=== PATIENT | male | born 1995 | race Caucasian/White ===

== ENCOUNTER 2018-08-18 01:16 | Inpatient (IN) | payer OTHER ==
[~2018-08-18] VITALS: Ht 182.9 cm; Wt 81.6 kg
[2018-08-18 02:00] VITALS: BP 127/78
[2018-08-18] MEDS ORDERED: MAGNESIUM HYDROXIDE 30 ML LIQUID UDC PO PRN (02:15)
[2018-08-18] MEDS ORDERED: HYDROXYZINE PAMOATE 25 MG CAPSULE PO PRN (02:15)
[2018-08-18] MEDS ORDERED: ONDANSETRON 4 MG/2 ML VIAL IM PRN (02:15)
[2018-08-18] MEDS ORDERED: THIAMINE HCL 200 MG/2 ML VIAL IM ONE (02:15)
[2018-08-18] MEDS ORDERED: ACETAMINOPHEN 325 MG TABLET PO PRN (02:15)
[2018-08-18] MEDS ORDERED: MAG HYDROX/AL HYDROX/SIMETH 30 ML LIQUID UDC PO PRN (02:15)
[2018-08-18] MEDS ORDERED: MIRALAX 17 GM POWD.PACK PO PRN (02:15)
[2018-08-18] MEDS ORDERED: DICYCLOMINE HCL 20 MG TABLET PO PRN (02:15)
[2018-08-18] MEDS ORDERED: ONDANSETRON ODT 4 MG TAB.RAPDIS SL PRN (02:15)
[2018-08-18] MEDS ORDERED: LORAZEPAM 2 MG/1 ML VIAL IM PRN ×2 (02:15→09:30)
[2018-08-18] MEDS ORDERED: LORAZEPAM 1 MG TABLET PO PRN ×2 (02:15)
[2018-08-18] MEDS ORDERED: LOPERAMIDE HCL 2 MG CAPSULE PO PRN ×2 (02:15)
[2018-08-18] MEDS ORDERED: IBUPROFEN 400 MG TABLET PO PRN (02:15)
[2018-08-18] MEDS ORDERED: ESCI20TA PO (02:18)
[2018-08-18] MEDS ORDERED: VENL75TA4 PO (02:18)
[2018-08-18] MEDS ORDERED: LORAZEPAM 1 MG TABLET PO ONE (02:30)
[2018-08-18 02:48] LABS: BASOPHILS # (AUTO) 0.1 K/uL (0.0-8.0); BASOPHILS % (AUTO) 0.5 % (0.0-2.0); EOSINOPHILS # (AUTO) 0.6 K/uL (0.0-0.7); EOSINOPHILS % (AUTO) 5.6 % (0.0-7.0); HEMATOCRIT 46.6 % (36.7-47.1); LYMPHOCYTES # (AUTO) 3.4 K/uL (20.0-40.0); LYMPHOCYTES % (AUTO) 32.1 % (20.5-51.5); MEAN CORPUSCULAR HEMOGLOBIN 30.9 uug (23.8-33.4); MEAN CORPUSCULAR HGB CONC 34 g/dL (32.5-36.3); MEAN CORPUSCULAR VOLUME 90.2 fL (73.0-96.2); MONOCYTES # (AUTO) 0.8 K/uL (2.0-10.0); MONOCYTES % (AUTO) 7.3 % (0.0-11.0); NEUTROPHILS # (AUTO) 5.7 K/uL (1.8-8.9); NEUTROPHILS % (AUTO) 54.5 % (38.5-71.5); PLATELET COUNT (AUTO) 283 K/uL (152-348); RED BLOOD CELL COUNT(AUTO) 5.17 MIL/uL (4.06-5.63); WHITE BLOOD COUNT (AUTO) 10.5 K/uL (3.6-10.2)
[2018-08-18 03:32] LABS: *AMPHETAMINE, URINE NEGATIVE (NEGATIVE); *BARBITURATE, URINE NEGATIVE (NEGATIVE); *CANNABINOID, URINE NEGATIVE (NEGATIVE); *COCCAINE, URINE NEGATIVE (NEGATIVE); *OPIATE, URINE NEGATIVE (NEGATIVE); *PHENCYCLIDINE SCREEN,URINE NEGATIVE (NEGATIVE)
[2018-08-18 03:45] LABS: ALANINE AMINOTRANSFERASE 19 U/L (16-63); ALKALINE PHOSPHATASE 78 U/L (50-136); AMYLASE 46 U/L (25-115); ASPARTATE AMINOTRANSFERASE 10 U/L (15-37); BILIRUBIN,TOTAL 0.5 mg/dL (0.2-1.0); CARBON DIOXIDE 29 mmol/L (21-32); CHLORIDE 101 mmol/L (98-107); CREATININE 1.2 mg/dL (0.6-1.3); GLUCOSE 108 mg/dL (74-106); LIPASE 91 U/L (73-393); MAGNESIUM 1.8 mg/dL (1.8-2.4); POTASSIUM 3.4 mmol/L (3.5-5.1); TOTAL PROTEIN, SERUM 8.2 g/dL (6.4-8.2); UREA NITROGEN, BLOOD 11 mg/dL (7-18)
[2018-08-18 03:48] LABS: ETHANOL < 3 MG/DL (0-0)
[2018-08-18 03:50] LABS: THYROID STIMULATING HORMONE 1.721 mIU/mL (0.358-3.740)
[2018-08-18 04:00] VITALS: BP 118/75
[2018-08-18 08:00] VITALS: BP 116/50
[2018-08-18] MEDS: MULTIVITAMINS,THERAPEUTIC TABLET PO SCH (08:50)
[2018-08-18] MEDS: THIAMINE HCL 100 MG TABLET PO SCH (08:50)
[2018-08-18] MEDS: FOLIC ACID 1 MG TABLET PO SCH (08:50)
[2018-08-18] MEDS ORDERED: POTASSIUM CHLORIDE 20 MEQ TAB.PRT.SR PO ONE (09:00)
[2018-08-18] MEDS ORDERED: DIAZEPAM 5 MG TABLET PO PRN (09:30)
[2018-08-18] MEDS ORDERED: DIAZEPAM 10 MG TABLET PO PRN ×2 (09:30)
[2018-08-18] MEDS ORDERED: 5 DAY TAPER VALIUM-SERENITY PROTOCOL PO PRN (09:30)
[2018-08-18 12:00] VITALS: BP 91/50
[2018-08-18] MEDS: DIAZEPAM 10 MG TABLET PO SCH ×2 (14:08→22:16)
[2018-08-18 16:00] VITALS: BP 102/57
[2018-08-18 20:00] VITALS: BP 114/68
[2018-08-18] MEDS: diphenhydrAMINE 50 MG CAPSULE PO PRN (22:20)
[2018-08-19] VITALS (7 sets, daily range): BP systolic 103–125; BP diastolic 59–89
[2018-08-19 04:06] LABS: HEPATITIS B SURFACE AG Negative (Negative)
[2018-08-19 08:58] LABS: CREATININE 1.1 mg/dL (0.6-1.3); POTASSIUM 3.9 mmol/L (3.5-5.1)
[2018-08-19] MEDS: FOLIC ACID 1 MG TABLET PO SCH (09:00)
[2018-08-19] MEDS ORDERED: TUBERCULIN,PURIF.PROT.DERIV. 5 TU/0.1 ML TEST ID ONE (09:00)
[2018-08-19] MEDS: MULTIVITAMINS,THERAPEUTIC TABLET PO SCH (09:01)
[2018-08-19] MEDS: DIAZEPAM 5 MG TABLET PO SCH ×4 (09:01→20:26)
[2018-08-19] MEDS: THIAMINE HCL 100 MG TABLET PO SCH (09:01)
[2018-08-19] MEDS ORDERED: QUETIAPINE FUMARATE 25 MG TABLET PO PRN (16:00)
[2018-08-19] MEDS: CLONIDINE HCL 0.1 MG TABLET PO PRN ×2 (16:06→22:08)
[2018-08-19] MEDS: diphenhydrAMINE 50 MG CAPSULE PO PRN (20:26)
[2018-08-20 08:00] VITALS: BP 91/56
[2018-08-20] MEDS: THIAMINE HCL 100 MG TABLET PO SCH (08:46)
[2018-08-20] MEDS: FOLIC ACID 1 MG TABLET PO SCH (08:46)
[2018-08-20] MEDS: MULTIVITAMINS,THERAPEUTIC TABLET PO SCH (08:46)
[2018-08-20] MEDS: DIAZEPAM 5 MG TABLET PO SCH ×3 (08:46→20:32)
[2018-08-20 12:00] VITALS: BP 110/54
[2018-08-20 16:00] VITALS: BP 123/66
[2018-08-20 20:30] VITALS: BP 137/82
[2018-08-20] MEDS: CLONIDINE HCL 0.1 MG TABLET PO PRN (20:32)
[2018-08-21 04:10] VITALS: BP 126/74
[2018-08-21 08:00] VITALS: BP 90/50
[2018-08-21] MEDS: THIAMINE HCL 100 MG TABLET PO SCH (08:33)
[2018-08-21] MEDS: DIAZEPAM 5 MG TABLET PO SCH ×2 (08:33→20:28)
[2018-08-21] MEDS: FOLIC ACID 1 MG TABLET PO SCH (08:33)
[2018-08-21] MEDS: MULTIVITAMINS,THERAPEUTIC TABLET PO SCH (08:33)
[2018-08-21 12:00] VITALS: BP 113/60
[2018-08-21 16:00] VITALS: BP 112/78
[2018-08-21 20:21] VITALS: BP 115/68
[2018-08-21] MEDS: CLONIDINE HCL 0.1 MG TABLET PO PRN (20:28)
[2018-08-21] MEDS: diphenhydrAMINE 50 MG CAPSULE PO PRN (20:31)
[2018-08-22] MEDS ORDERED: DIAZEPAM 5 MG TABLET PO SCH (09:00)
[2018-08-22] MEDS: THIAMINE HCL 100 MG TABLET PO SCH (09:20)
[2018-08-22] MEDS: MULTIVITAMINS,THERAPEUTIC TABLET PO SCH (09:20)
[2018-08-22] MEDS: FOLIC ACID 1 MG TABLET PO SCH (09:20)
[2018-08-22 09:22] VITALS: BP 110/63
[2018-08-22 13:00] VITALS: BP 145/73
[2018-08-22 17:14] VITALS: BP 141/77
[2018-08-22 20:00] VITALS: BP 127/69
[2018-08-23 08:00] VITALS: BP 102/60
[2018-08-23] MEDS: THIAMINE HCL 100 MG TABLET PO SCH (08:29)
[2018-08-23] MEDS: FOLIC ACID 1 MG TABLET PO SCH (08:29)
[2018-08-23] MEDS: MULTIVITAMINS,THERAPEUTIC TABLET PO SCH (08:29)
== END 2018-08-23 10:28 | disposition other institution (70) | DRG 895 ==
LOC: SRC 01:16
PROVIDERS: ADMIT Family Medicine Addiction Medicine; ATTEND Family Medicine Addiction Medicine
PROC: HZ2ZZZZ Detoxification Services for Substance Abuse Treatment (ICD-10-PCS; principal; 2018-08-18)
PROC: HZ41ZZZ Group Counseling for Substance Abuse Treatment, Behavioral (ICD-10-PCS; 2018-08-19)
PROC: HZ31ZZZ Individual Counseling for Substance Abuse Treatment, Behavioral (ICD-10-PCS; 2018-08-19)
DX: F10.230 Alcohol dependence with withdrawal, uncomplicated (principal); F13.230 Sedative, hypnotic or anxiolytic dependence with withdrawal, uncomplicated; Y90.0 Blood alcohol level of less than 20 mg/100 ml; F41.1 Generalized anxiety disorder; F41.0 Panic disorder [episodic paroxysmal anxiety]; Z87.81 Personal history of (healed) traumatic fracture; F17.210 Nicotine dependence, cigarettes, uncomplicated; K59.00 Constipation, unspecified; F32.9 Major depressive disorder, single episode, unspecified
CPT/HCPCS: 36415; 70030-TC; 80307; 80346; 83690; 83735; 84443; 85025; 86592; 86705; 86803; 87340; 87806; A4663; G0480; J3411; Q0163